=== PATIENT | male | born 1985 | race African-American/Black ===

== ENCOUNTER 2016-11-22 12:36 | Emergency (ER) | payer SELFPAY ==
[2016-11-22] MEDS ORDERED: diphenhydrAMINE HCl 25 MG CAP ONE (12:56)
[2016-11-22] MEDS ORDERED: Naproxen 500 MG TAB ONE (12:56)
== END 2016-11-22 14:25 | disposition home or self-care (01) ==
LOC: MADERS 12:36
DX: T78.40XA Allergy, unspecified, initial encounter (principal); F17.210 Nicotine dependence, cigarettes, uncomplicated
CPT/HCPCS: 96372; J1040

== ENCOUNTER 2017-02-18 02:15 | Emergency (ER) | payer SELFPAY ==
[2017-02-18] MEDS ORDERED: Naproxen 500 MG TAB ONE (02:40)
--- NOTE | 2017-02-18 08:10 | RAD ---
RIGHT AC JOINT WITH WEIGHTS: HISTORY: AC joint swelling and pain. FINDINGS: There is no significant change in the acromioclavicular joint alignment with or without weights. Th e clavicle is intact. 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 IMPRESSION: Mild osteoarthrosis without evidence of strain. No effusion across the acromioclavicular joint. POS: [facility]
== END 2017-02-18 03:45 | disposition home or self-care (01) ==
LOC: MADERS 02:15
DX: M25.511 Pain in right shoulder (principal); F17.210 Nicotine dependence, cigarettes, uncomplicated
CPT/HCPCS: 73050

== ENCOUNTER 2017-03-19 22:33 | Emergency (ER) | payer SELFPAY ==
[2017-03-19] MEDS ORDERED: Ketorolac Tromethamine 30 MG/ML VIAL ONE (23:17)
== END 2017-03-19 23:35 | disposition home or self-care (01) ==
LOC: MADERS 22:33
DX: S43.401A Unspecified sprain of right shoulder joint, initial encounter (principal); F17.210 Nicotine dependence, cigarettes, uncomplicated; Z79.2 Long term (current) use of antibiotics; Z79.891 Long term (current) use of opiate analgesic; X58.XXXA Exposure to other specified factors, initial encounter
CPT/HCPCS: 96372; J1885

== ENCOUNTER 2017-12-27 13:00 | Emergency (ER) | payer SELFPAY ==
[2017-12-27] MEDS ORDERED: Ondansetron ODT 4 MG TAB ONE (13:24)
== END 2017-12-27 13:50 | disposition home or self-care (01) ==
LOC: MADERS 13:00
DX: R11.2 Nausea with vomiting, unspecified (principal); F17.210 Nicotine dependence, cigarettes, uncomplicated
CPT/HCPCS: 99283; Q0162

== ENCOUNTER 2018-11-16 11:31 | Emergency (ER) | payer SELFPAY ==
[2018-11-16] MEDS ORDERED: Bupivacaine PF 0.5% 30 ML VIAL ONE (12:31)
== END 2018-11-16 13:00 | disposition home or self-care (01) ==
LOC: MADERS 11:31
DX: K08.89 Other specified disorders of teeth and supporting structures (principal); F17.210 Nicotine dependence, cigarettes, uncomplicated
CPT/HCPCS: 64400; S0020

== ENCOUNTER 2021-06-04 17:23 | Emergency (ER) | payer SELFPAY ==
[2021-06-05 18:37] LABS: SARS-CoV-2 PCR by NAA Not Detected (NotDetected)
== END 2021-06-04 18:30 | disposition home or self-care (01) ==
LOC: MADERS 17:23
DX: L25.9 Unspecified contact dermatitis, unspecified cause (principal); L28.0 Lichen simplex chronicus; R05 Cough; F17.210 Nicotine dependence, cigarettes, uncomplicated
CPT/HCPCS: 99284; U0003; U0005

== ENCOUNTER 2022-10-11 08:53 | Emergency (ER) | payer SELFPAY ==
[2022-10-11] MEDS ORDERED: Dexamethasone 10 MG/ML VIAL ONE (09:28)
== END 2022-10-11 09:48 | disposition home or self-care (01) ==
LOC: MADERS 08:53
DX: J02.9 Acute pharyngitis, unspecified (principal); F17.210 Nicotine dependence, cigarettes, uncomplicated
CPT/HCPCS: 87081; 87430; 96372; 99283; J1100

== ENCOUNTER 2023-05-11 17:17 | Emergency (ER) | payer SELFPAY ==
[2023-05-11] MEDS ORDERED: Ibuprofen 600 MG TAB ONE (19:00)
== END 2023-05-11 19:19 | disposition home or self-care (01) ==
LOC: MADERS 17:17
DX: S92.354A Nondisplaced fracture of fifth metatarsal bone, right foot, initial encounter for closed fracture (principal); M25.571 Pain in right ankle and joints of right foot; F17.210 Nicotine dependence, cigarettes, uncomplicated; X58.XXXA Exposure to other specified factors, initial encounter

== ENCOUNTER 2023-06-06 23:50 | Emergency (ER) | payer OTHER | END 2023-06-07 01:16 | disposition home or self-care (01) | LOC: MADERS 23:50 | DX: M25.472 Effusion, left ankle (principal); F17.210 Nicotine dependence, cigarettes, uncomplicated ==

== ENCOUNTER 2024-06-22 20:52 | Emergency (ER) | payer OTHER ==
[~2024-06-22 20:52] MED LIST: Iopamidol 370 76% 100 ML VIAL ONE
[2024-06-22] MEDS ORDERED: Morphine 4 MG/ML VIAL ONE (21:03)
[2024-06-22] MEDS ORDERED: Morphine 2 MG/ML VIAL ONE (21:03)
[2024-06-22 21:30] LABS: Band 4 % (5-11); Eosinophils 4 % (0-10); Hematocrit 48.9 % (42.0-52.0); Hemoglobin 14.5 g/dL (14.0-18.0); Lymphocytes 32 % (21-51); MDiff Complete? YES; Mean Corpuscular HGB CONC 29.7 g/dL (32.0-36.0); Mean Corpuscular Hemoglobin 26.4 pg (27.0-31.0); Mean Corpuscular Volume 88.9 fl (78.0-98.0); Mean Platelet Volume 6.2 fL (7.4-10.4); Monocytes 2 % (0-10); Neutrophil 58 % (42-75); Platelet Count 233 10x3/uL (130-400); RBC Distribution Width 13.6 % (11.5-14.5); White Blood Cell (WBC) Count 10.3 10x3/uL (4.8-10.8)
[2024-06-22 21:33] LABS: PTT 28.2 sec (22.9-36.1); Prothrombin Time 12.7 sec (12.0-14.7)
[2024-06-22 21:40] LABS: ALT (SGPT) 24 U/L (8-55); AST (SGOT) 26 U/L (5-34); Albumin 4.4 g/dL (3.5-5.0); Alkaline Phosphatase 58 U/L (40-110); Anion Gap 18 mmol/L (10-20); BUN (Urea Nitrogen) 15 mg/dL (8.9-20.6); Bilirubin, Total 0.6 mg/dL (0.2-1.2); Calc. Creatinine Clearance 0 mL/min (70-130); Calcium 9.9 mg/dL (7.8-10.44); Carbon Dioxide 19 mmol/L (22-29); Chloride 110 mmol/L (98-107); Estimated GFR 72; Globulin 3.1 g/dL (2.4-3.5); Glucose 85 mg/dL (70-105); Potassium 4.2 mmol/L (3.5-5.1); Protein, Total 7.5 g/dL (6.0-8.3); Sodium 143 mmol/L (136-145)
== END 2024-06-22 23:03 | disposition home or self-care (01) ==
LOC: MADERS 20:52
DX: S22.31XA Fracture of one rib, right side, initial encounter for closed fracture (principal); F17.210 Nicotine dependence, cigarettes, uncomplicated; Z55.6 Problems related to health literacy; V29.99XA Rider (driver) (passenger) of other motorcycle injured in unspecified traffic accident, initial encounter
CPT/HCPCS: 71260; 74177; 80053; 85025; 85610; 85730; 93005; 96374; J2272; Q9967

== ENCOUNTER 2024-07-19 18:10 | Emergency (ER) | payer OTHER ==
[2024-07-19] MEDS ORDERED: Boostrix 0.5 ML (Tdap) VIAL (>/=7 yrs of age) ONE (18:18)
[2024-07-19] MEDS ORDERED: LevoFLOXacin 500 MG TAB ONE (18:46)
[2024-07-19] MEDS ORDERED: Cephalexin 500 MG CAP ONE (18:46)
== END 2024-07-19 18:45 | disposition home or self-care (01) ==
LOC: MADERS 18:10
DX: S91.331A Puncture wound without foreign body, right foot, initial encounter (principal); F17.210 Nicotine dependence, cigarettes, uncomplicated; W45.0XXA Nail entering through skin, initial encounter; Y93.89 Activity, other specified; Z23 Encounter for immunization; Z59.71 Insufficient health insurance coverage; Z59.00 Homelessness unspecified; Z55.0 Illiteracy and low-level literacy; Z60.3 Acculturation difficulty
CPT/HCPCS: 90471; 90715

== ENCOUNTER 2024-11-10 04:40 | Emergency (ER) | payer OTHER ==
[2024-11-10] MEDS ORDERED: Dexamethasone 10 MG/ML VIAL ONE (05:14)
[2024-11-10] MEDS ORDERED: Famotidine/PF 20 mg/2ml Vial ONE (05:15)
[2024-11-10] MEDS ORDERED: Acetaminophen 500 MG TAB ONE (05:15)
[2024-11-10] MEDS ORDERED: Sodium Chloride 0.9% 1,000 ML ONE (05:15)
[2024-11-10] MEDS ORDERED: Lorazepam 2 MG/ML VIAL ONE (05:15)
[2024-11-10 06:11] LABS: Troponin I Less than 0.010 ng/mL (< 0.028)
[2024-11-10 06:12] LABS: Band 2 % (5-11); Hematocrit 57.2 % (42.0-52.0); Hemoglobin 17.7 g/dL (14.0-18.0); Lymphocytes 30 % (21-51); MDiff Complete? YES; Mean Corpuscular HGB CONC 30.9 g/dL (32.0-36.0); Mean Corpuscular Hemoglobin 26.5 pg (27.0-31.0); Mean Corpuscular Volume 85.9 fl (78.0-98.0); Mean Platelet Volume 8.7 fL (7.4-10.4); Monocytes 14 % (0-10); Neutrophil 54 % (42-75); Platelet Count 195 10x3/uL (130-400); RBC Distribution Width 12.8 % (11.5-14.5); Red Blood Cell (RBC) Count 6.66 mill/uL (4.70-6.10); White Blood Cell (WBC) Count 8.8 10x3/uL (4.8-10.8)
[2024-11-10 06:14] LABS: ALT (SGPT) 45 U/L (Less than 45); AST (SGOT) 50 U/L (11-34); Albumin 4.3 g/dL (3.1-4.5); Alkaline Phosphatase 71 U/L (40-110); Anion Gap 17 mmol/L (10-20); BUN (Urea Nitrogen) 13 mg/dL (8.9-20.6); Bilirubin, Total 0.3 mg/dL (0.3-1.2); Calc. Creatinine Clearance 0 mL/min (70-130); Calcium 9.2 mg/dL (7.8-10.44); Carbon Dioxide 21 mmol/L (22-29); Chloride 102 mmol/L (98-107); Estimated GFR 95; Globulin 3.6 g/dL (2.4-3.5); Glucose 105 mg/dL (70-105); Potassium 3.4 mmol/L (3.5-5.1); Protein, Total 7.9 g/dL (6.0-8.3); Sodium 137 mmol/L (136-145)
== END 2024-11-10 07:21 | disposition home or self-care (01) ==
LOC: MADERS 04:40
DX: B34.9 Viral infection, unspecified (principal); F41.1 Generalized anxiety disorder; F17.210 Nicotine dependence, cigarettes, uncomplicated
CPT/HCPCS: 71046; 80053; 83880; 84484; 85025; 87428; 96374; 96375; J1100; J2060; J3490; J7030

== ENCOUNTER 2025-09-09 03:32 | Emergency (ER) | payer OTHER | END 2025-09-09 03:53 | disposition home or self-care (01) | LOC: MADERS 03:32 | DX: H61.23 Impacted cerumen, bilateral (principal); I10 Essential (primary) hypertension; F17.210 Nicotine dependence, cigarettes, uncomplicated | CPT/HCPCS: 69210; 99282 ==